=== PATIENT | female | born 1980 | race Caucasian/White ===

== ENCOUNTER 2025-03-24 12:30 | Emergency (ER) | payer BC ==
[2025-03-24 13:30] LABS: Sqamous Epithelial <5 /HPF (None Seen); Urine Culture Reflex Order NOT NEEDED; Urine Microscopic Reflex YN ORDER UMIC
[2025-03-24] MEDS ORDERED: NA CHLORIDE 0.9% 1,000 ML ONE (13:31)
[2025-03-24] MEDS ORDERED: ONDANSETRON 4 MG/2 ML VIAL ONE (13:31)
[2025-03-24] MEDS ORDERED: KETOROLAC 30 MG/ML INJ ONE (13:31)
[2025-03-24 13:37] LABS: Absolute Lymphocytes (CBC) 2.0 K/uL (0.7-4.9); Hematocrit 40.5 % (36.0-45.0); Hemoglobin 13.0 g/dL (12.0-15.0); MCH 27.0 pg (27.0-35.0); MCHC 32.0 g/dL (32.0-36.0); MCV 84.3 fL (80-100); MPV 8.9 fL (7.6-11.3); Nucleated RBC Absolute Count 0.0 (0-0); Nucleated Red Blood Cells % 0.1 % (0-0); RBC Red Blood Cell Count 4.81 M/uL (3.86-4.86); White Blood Count 10.40 thou/uL (4.3-10.9)
[2025-03-24 14:02] LABS: ALT/SGPT 23.0 U/L (13-56); AST/SGOT 14.0 U/L (15-37); Albumin 3.9 g/dL (3.4-5.0); Albumin/Globulin Ratio 1.1 (1.1-1.8); Alkaline Phosphatase 68.0 U/L (45-117); Anion Gap 9.8 mEq/L (5.0-15.0); BUN Blood Urea Nitrogen 10.0 mg/dL (7-18); Globulin 3.5 g/dL (2.3-3.5); Glucose Level 97.0 mg/dL (74-106); Lipase 19.0 U/L (13-75); Potassium 3.8 mEq/L (3.5-5.1)
--- NOTE | 2025-03-24 14:48 | RAD REPORT ---
EXAMINATION: CT ABDOMEN AND PELVIS WITH CONTRAST CLINICAL INDICATION: Abdominal pain TECHNIQUE: CT abdomen and pelvis was performed, after the administration of 100 cc Isovue-300.. Sagit mirta and coronal reconstructions were obtained. One or more of the following dose reduction techniques were used: Automated exposure control, adjustment of the mA and kV according to patient si ze, and iterative reconstruction. Unless otherwise specified, incidental findings do not require dedicated imaging follow-up. [id number]. Oral contrast was not given which limits evaluation of bowel and appendix. COMPARISON: .None FINDINGS: Liver, spleen, pancreas, adrenals and kidneys appear unremarkable No evidence of diverticulitis. Period fluid within nondilated small bowel. Normal appendix. 2 cm irregularly-shaped left ovarian cyst likely has recently ruptured. No significant free fluid. No follow-up imaging recommended. : IMPRESSION: 2 cm irregularly shaped left ovarian cyst likely has recently ruptured. No significant free fluid Fluid within nondilated small bowel may indicate an enteritis
[2025-03-24] MEDS ORDERED: MORPHINE 4 MG/ML SYR ONE (15:07)
--- NOTE | 2025-03-24 15:45 | RAD REPORT ---
EXAMINATION: Transvaginal Study Probe CLINICAL INDICATION: Pelvic pain TECHNIQUE: Real-time ultrasonography of the pelvis was performed transvaginally. Color and spectral D oppler evaluation of the ovaries was performed. COMPARISON: CT March 24, 2025. FINDINGS: The uterus measures 8 x 5 x 6 cm. A fibroid is not seen. The uterus is retroflexed The endometrial stripe measures 1.4 cm Right ovary normal in size and echotexture. Blood flow to the right ovary is present. The patient's k nown small left ovarian cyst was not well imaged on this exam. Left ovary normal in size and echotexture. Blood flow to left ovary is present. Right and left adnexa unremarkable No significant free fluid IMPRESSION: No evidence of an ovarian torsion
--- NOTE | 2025-03-24 16:00 | ER ---
Nurse's Notes [facility] Name: Edy Mittal Age: 44 yrs Sex: Female : 1980 Arrival Date: 03/24/2025 Time: 12:30 Bed 4 Private MD: Diagnosis: Lower abdominal pain, unspecified Presentation: 03/24 12:48 Chief complaint: Patient states: RIGHT LOWER ABD PAIN STARTED ON SUNDAY NIGHT. NOT db GETTING BETTER. WENT TO URGENT CARE TODAY. SENT TO ER FOR R/O APPY. STATES HAS GAS. DENIES N/V. RIGHT LOWER ABD TENDERNESS. Coronavirus screen: Client denies travel out of the [place] in the last 14 days. At this time, the client does not indicate any symptoms associated with coronavirus-19. Ebola Screen: Patient negative for fever greater than or equal to 101.5 degrees Fahrenheit, and additional compatible Ebola Virus Disease symptoms Patient denies exposure to infectious person. Patient denies travel to an Ebola-affected area in the 21 days before illness onset. No symptoms or risks identified at this time. Initial Sepsis Screen: Does the patient meet any 2 criteria? No. Patient's initial sepsis screen is negative. Does the patient have a suspected source of infection? No. Patient's initial sepsis screen is negative. Risk Assessment: Do you want to hurt yourself or someone else? Patient reports no desire to harm self or others. Onset of symptoms was March 21, 2025. 12:48 Method Of Arrival: Ambulatory db 12:48 Acuity: HAYDEN 3 db Triage Assessment: 12:52 General: Appears in no apparent distress. comfortable, Behavior is calm, cooperative. db Pain: Complains of pain in abdomen. Neuro: Level of Consciousness is awake, alert, obeys commands, Oriented to person, place, time, situation. Respiratory: Airway is patent Respiratory effort is even, unlabored, Respiratory pattern is regular, symmetrical. GI: Abdomen is non-distended, Reports lower abdominal pain. 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 - Infectious Disease History:: Denies. - Social history:: Smoking status: Patient reports the use of cigarette tobacco products, denies chronic smoking, but will smoke occasionally. Screenin:50 [facility] ED Fall Risk Assessment (Adult) History of falling in the last 3 months, hb including since admission No falls in past 3 months (0 pts) Confusion or Disorientation No (0 pts) Intoxicated or Sedated No (0 pts) Impaired Gait No (0 pts) Mobility Assist Device Used No (0 pt) Altered Elimination No (0 pt) Score/Fall Risk Level 0 - 2 = Low Risk Oriented to surroundings, Maintained a safe environment, Educated pt \T\ family on fall prevention, incl call for assistance when getting out of bed, Assessed \T\ reinforced patient's understanding of fall precautions, Hourly rounding (assess needs \T\ fall precautionary measures) done, Used ambulatory aids as needed (educated on \T\ assisted with), Used gait belt as appropriate. Abuse screen: Denies threats or abuse. Denies injuries from another. Nutritional screening: No deficits noted. Tuberculosis screening: No symptoms or risk factors identified. Assessment: 13:30 General: Appears in no apparent distress. comfortable, Behavior is calm, cooperative. hb Pain: Complains of pain in right lower quadrant and left lower quadrant Pain currently is 3 out of 10 on a pain scale. at worst was 6 out of 10 on a pain scale. Neuro: Level of Consciousness is awake, alert, obeys commands, Oriented to person, place, time, situation. Cardiovascular: Denies chest pain, Heart tones S1 S2 present Capillary refill < 3 seconds in bilateral fingers Patient's skin is warm and dry. Respiratory: Airway is patent Respiratory effort is even, unlabored, Respiratory pattern is regular, symmetrical, Breath sounds are clear bilaterally. in right upper lobe and left upper lobe. GI: Abdomen is flat, non-distended, Bowel sounds present X 4 quads. Abd is soft X 4 quads Abdomen is tender to palpation in right lower quadrant and left lower quadrant. : No signs and/or symptoms were reported regarding the genitourinary system. EENT: No signs and/or symptoms were reported regarding the EENT system. Derm: No signs and/or symptoms reported regarding the dermatologic system. Skin is intact, is healthy with good turgor, Skin is pink, warm \T\ dry. Musculoskeletal: No signs and/or symptoms reported regarding the musculoskeletal system. Circulation, motion, and sensation intact. Range of motion: intact in all extremities. 14:30 Reassessment: Patient appears in no apparent distress at this time. Patient and/or zm family updated on plan of care and expected duration. Pain level reassessed. Patient is alert, oriented x 3, equal unlabored respirations, skin warm/dry/pink. Patient states symptoms have not improved. 15:50 Reassessment: Patient appears in no apparent distress at this time. Patient and/or hb family updated on plan of care and expected duration. Pain level reassessed. Patient is alert, oriented x 3, equal unlabored respirations, skin warm/dry/pink. 16:25 Reassessment: Patient appears in no apparent distress at this time. Patient and/or zm family updated on plan of care and expected duration. Pain level reassessed. Patient is alert, oriented x 3, equal unlabored respirations, skin warm/dry/pink. Vital Signs: 12:48 BP 137 / 94; Pulse 95; Resp 18; Temp 99.4(O); Pulse Ox 99% ; Weight 68.04 kg; Height 5 db ft. 2 in. ; 13:52 BP 130 / 92; Pulse 83; Resp 17; Pulse Ox 100% on R/A; Pain 3/10; hb 15:50 BP 147 / 81; Pulse 80; Resp 14; Pulse Ox 98% on R/A; hb 16:27 BP 142 / 63; Pulse 83; Resp 16; Temp 98.2; Pulse Ox 100% on R/A; zm 12:48 Body Mass Index 27.44 (68.04 kg, 157.48 cm) db 13:52 Pain Scale: Adult hb [place] Coma Score: 13:52 Eye Response: spontaneous(4). Motor Response: obeys commands(6). Verbal Response: hb oriented(5). Total: 15. 16:27 Eye Response: spontaneous(4). Motor Response: obeys commands(6). Verbal Response: zm oriented(5). Total: 15. ED Course: 12:34 Patient arrived in ED. al6 12:35 [facility]C [facility] kb 12:35 Red Salazar MD is Attending Physician. kb 12:51 Triage completed. db 12:53 Arm band placed on. db 12:55 Radiology exam delayed due to lab results not completed at this time. (BUN/Creatinine) nj test not completed at this time. IV insertion attempt and/or patient not having appropriate IV at this time. 13:29 Tammy More, RN is Primary Nurse. zm 13:36 Initial lab(s) drawn, by slabbing machine operator, sent to lab. Inserted saline lock: 20 gauge in left ts3 antecubital area, using aseptic technique. Blood collected. Flushed with 10 mL NS. 13:36 Urine collected: clean catch specimen, sent to lab. ts3 13:46 CBC with Diff Sent. hb 13:46 CMP Sent. hb 13:46 Lipase Sent. hb 13:50 Patient has correct armband on for positive identification. Bed in low position. Call hb light in reach. Side rails up X 1. Provided Education on: call light use. Client placed on continuous cardiac and pulse oximetry monitoring. NIBP monitoring applied. Door closed. Noise minimized. Lights dimmed. Warm blanket given. Verbal reassurance given. 14:32 CT Abd/Pelvis - IV Contrast Only In Process Unspecified. EDMS 15:38 US Transvaginal Study (Probe) In Process Unspecified. EDMS 16:28 No provider procedures requiring assistance completed. IV discontinued, intact, zm bleeding controlled, No redness/swelling at site. Pressure dressing applied. Administered Medications: 13:45 Drug: TORadol - Ketorolac IVP 15 mg IVP once Route: IVP; Site: left antecubital; hb 13:45 Drug: Ondansetron IVP 4 mg IVP once; over 2 minutes Route: IVP; Site: left antecubital; hb 13:45 Drug: NS 0.9% IV 1000 ml IV at 1 bolus Per protocol; to be given as a bolus over 60 hb minutes Route: IV; Rate: 1 bolus; Site: left antecubital; 15:20 Drug: morphine IVP or IV 4 mg IVP once over 4 mins Route: IVP; Infused Over: 4 mins; zm Site: left antecubital; Medication: 13:52 VIS not applicable for this client. hb Outcome: 16:00 Discharge ordered by . kb 16:28 Patient left the ED. bd Signatures: Dispatcher [employer] EDMS Anitha Farr FNP-C FNP-Michelle Sethi Heather, RN RN Valentino Issa Zaina, RN RN Raisa Brady RN RN db Stefani Schneider al6 Rachael Hill 3 Corrections: (The following items were deleted from the chart) 12:53 12:48 BP 137 / 94; Pulse 95bpm; Resp 18bpm; Pulse Ox 99%; Temp 99.4F Oral; db db
--- NOTE | 2025-03-24 16:00 | EDPHYS ---
Physician Documentation [facility] Name: Edy Mittal Age: 44 yrs Sex: Female : 1980 Arrival Date: 03/24/2025 Time: 12:30 Bed 4 Private MD: ED Physician Red Salazar HPI: 03/24 16:14 This 44 yrs old Female presents to ER via Ambulatory with complaints of Abdominal Pain. kb 16:15 Patient is a 44-year-old female who presents for right lower quadrant pain that started kb 4 days ago. States pain has been getting progressively worse. Denies fever, nausea, vomiting, diarrhea, urinary symptoms.. 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 - Infectious Disease History:: Denies. - Social history:: Smoking status: Patient reports the use of cigarette tobacco products, denies chronic smoking, but will smoke occasionally. ROS: 16:10 Constitutional: As per HPI kb Exam: 16:10 Constitutional: This is a well developed, well nourished patient who is awake, alert, kb and in no acute distress. Head/Face: Normocephalic, atraumatic. ENT: Moist Mucous membranes Cardiovascular: Regular rate Respiratory: Respirations even and unlabored. No increased work of breathing. Talking in full sentences Skin: Warm, dry with normal turgor. Normal color. MS/ Extremity: Pulses equal, no cyanosis. Neurovascular intact. Full, normal range of motion. Neuro: Awake and alert, GCS 15, oriented to person, place, time, and situation. 16:10 Abdomen/GI: Inspection: abdomen appears normal, Bowel sounds: normal, Palpation: moderate abdominal tenderness, moderate pain on right side with palpation of left side. Pt would not allow palpation of right side due to pain, Vital Signs: 12:48 BP 137 / 94; Pulse 95; Resp 18; Temp 99.4(O); Pulse Ox 99% ; Weight 68.04 kg; Height 5 db ft. 2 in. ; 13:52 BP 130 / 92; Pulse 83; Resp 17; Pulse Ox 100% on R/A; Pain 3/10; hb 15:50 BP 147 / 81; Pulse 80; Resp 14; Pulse Ox 98% on R/A; hb 16:27 BP 142 / 63; Pulse 83; Resp 16; Temp 98.2; Pulse Ox 100% on R/A; zm 12:48 Body Mass Index 27.44 (68.04 kg, 157.48 cm) db 13:52 Pain Scale: Adult hb [place] Coma Score: 13:52 Eye Response: spontaneous(4). Motor Response: obeys commands(6). Verbal Response: hb oriented(5). Total: 15. 16:27 Eye Response: spontaneous(4). Motor Response: obeys commands(6). Verbal Response: zm oriented(5). Total: 15. MDM: 12:35 Medical Screening Exam initiated kb 16:14 Differential diagnosis: appendicitis, urinary tract infection, Ovarian cyst, ovarian kb torsion. Data reviewed: vital signs, nurses notes. Counseling: I had a detailed discussion with the patient and/or guardian regarding the historical points, exam findings, and any diagnostic results supporting the discharge/admit diagnosis, lab results, radiology results, the need for outpatient follow up, a family practitioner, to return to the emergency department if symptoms worsen or persist or if there are any questions or concerns that arise at home. 03/24 12:53 Order name: CBC with Diff; Complete Time: 13:52 kb 03/24 12:53 Order name: CMP; Complete Time: 14:04 kb 03/24 12:53 Order name: Lipase; Complete Time: 14:04 kb 03/24 12:53 Order name: Test, Urine; Complete Time: 13:32 kb 03/24 12:53 Order name: UA Rfx Phi Cult if indicated; Complete Time: 13:32 kb 03/24 12:53 Order name: CT Abd/Pelvis - IV Contrast Only; Complete Time: 14:48 kb 03/24 14:58 Order name: US Transvaginal Study (Probe); Complete Time: 15:46 kb 03/24 12:53 Order name: IV Saline Lock; Complete Time: 13:32 kb 03/24 12:53 Order name: Labs collected and sent; Complete Time: 13:32 kb Administered Medications: 13:45 Drug: TORadol - Ketorolac IVP 15 mg IVP once Route: IVP; Site: left antecubital; hb 13:45 Drug: Ondansetron IVP 4 mg IVP once; over 2 minutes Route: IVP; Site: left antecubital; hb 13:45 Drug: NS 0.9% IV 1000 ml IV at 1 bolus Per protocol; to be given as a bolus over 60 hb minutes Route: IV; Rate: 1 bolus; Site: left antecubital; 15:20 Drug: morphine IVP or IV 4 mg IVP once over 4 mins Route: IVP; Infused Over: 4 mins; Site: left antecubital; Disposition: 16:31 Co-signature as Attending Physician, Red Salazar MD I reviewed the patient's care rn provided by the Advanced Practice Provider and agree with the diagnosis and treatment plan. Disposition Summary: 03/24/25 16:00 Discharge Ordered Notes: Location: Home kb Condition: Stable kb Diagnosis - Lower abdominal pain, unspecified kb Followup: kb - With: Emergency Department - When: As needed - Reason: Worsening of condition Followup: kb - With: Private Physician - When: 2 - 3 days - Reason: Recheck today's complaints, Continuance of care, Re-evaluation by your physician Discharge Instructions: - Discharge Summary Sheet kb - Pelvic Pain, Female, [id number] kb - Abdominal Pain, Adult, [id number] kb Forms: - Medication Reconciliation Form kb - Antibiotic Education kb - Prescription Opioid Use kb - Patient Portal Instructions kb - Leadership Thank You Letter kb Prescriptions: - Diclofenac Sodium 75 mg Oral tablet, delayed release (enteric coated) - take 1 tablet ORAL route 2 times per day As needed; 30 tablet; Refills: 0, kb Product Selection Permitted Signatures: Dispatcher [employer] EDSC Anitha Farr, OVERCOILER-C OVERCOILER-Ckb Red Salazar MD MD rn Baxter, Heather, RN RN Tammy Amezcua RN RN zm Benton, Danielle, RN RN db Corrections: (The following items were deleted from the chart) 12:53 12:53 CBC+H.LAB.BRZ ordered. EDMS EDMS 12:53 12:53 COMPREHENSIVE METABOLIC PANEL+C.LAB.BRZ ordered. EDMS EDMS 12:53 12:53 LIPASE+C.LAB.BRZ ordered. EDMS EDMS 12:53 12:53 Test, Urine+UC.LAB.BRZ ordered. EDMS EDMS 12:53 12:53 UA Rfx Phi Cult if indicated+U.LAB.BRZ ordered. EDMS EDMS 12:53 12:53 Abdomen Pelvis W Con+CT.RAD.BRZ ordered. EDMS EDMS 16:14 16:10 Abdomen/GI: Inspection: abdomen appears normal, Bowel sounds: normal, Palpation: kb moderate abdominal tenderness, in all quadrants, kb
[2025-03-25 00:33] VITALS: BP 142/63; TEMP 98.2; O2SAT 100
== END 2025-03-24 16:28 | disposition home or self-care (01) ==
LOC: ER 12:30
DX: R10.31 Right lower quadrant pain (principal); F17.210 Nicotine dependence, cigarettes, uncomplicated
CPT/HCPCS: 85025; 81001; 36415; 81025; 83690; 80053; 74177; 76830; 96375; 96374; 99284; Q9967; J1885; J2405; J7030